=== PATIENT | male | born 1965 | race Two or more races ===

== ENCOUNTER 2017-01-04 19:27 | Emergency (ER) | payer OTHER ==
[~2017-01-04] VITALS: Ht 180.3 cm; Wt 119.7 kg
--- NOTE | 2017-01-04 19:45 | NUR ---
PT BIB SELF C/O L EYE TWITCHING X1 DAY WITH L FACIAL AND FINGER NUMBNESS/TINGLING TODAY. NO NEURO DEFICITS NOTED. SPEECH CLEAR. EQUAL CONTROL ELECTRICIAN STRENGTH. AMBULATORY WITH STEADY GAIT. RESP EVEN UNLABORED. SKIN WARM NONDIAPHORETIC. IN ER BED 09 ON MONITOR.
--- NOTE | 2017-01-04 19:52 | NUR ---
PT TRANSPORTED TO CT IN STABLE CONDITION
[2017-01-04] MEDS ORDERED: IV NS 0.9% 500 ML BAG IV ONE (20:00)
[2017-01-04 20:01] LABS: BASOPHILS # (AUTO) 0.1 /CMM (0.0-0.2); BASOPHILS % (AUTO) 0.8 % (0.0-2.0); EOSINOPHILS # (AUTO) 0.7 /CMM (0.0-0.7); EOSINOPHILS % (AUTO) 7.4 % (0.0-6.0); HEMATOCRIT 45 % (39-51); HEMOGLOBIN 15.1 g/dL (13.5-17.5); LYMPHOCYTES # (AUTO) 3.5 /CMM (0.8-4.8); MEAN CORPUSCULAR HEMOGLOBIN 30 PG (26.0-33.0); MEAN CORPUSCULAR HGB CONC 34 g/dl (31.0-36.0); MEAN CORPUSCULAR VOLUME 87 fL (80-96); MONOCYTES # (AUTO) 0.8 /CMM (0.1-1.30); MONOCYTES % (AUTO) 8.5 % (2.0-12.0); NEUTROPHILS # (AUTO) 4.1 /CMM (1.8-8.9); NEUTROPHILS % (AUTO) 45.3 % (43.0-81.0); PLATELET COUNT (AUTO) 279 /CMM (150-450); RDW COEFFICIENT OF VARIATION 12.8 (11.5-15.0); RED BLOOD CELL COUNT(AUTO) 5.13 MIL/uL (4.5-6.0); WHITE BLOOD COUNT (AUTO) 9.2 K/uL (4.3-11.0)
[2017-01-04] MEDS ORDERED: IV NS 0.9% 500 ML IV ONE (20:06)
[2017-01-04] MEDS ORDERED: IV SET PRIMARY 1 EA INFUS.SET MC ONE (20:06)
[2017-01-04 20:10] LABS: CALCIUM, SERUM 8.6 mg/dL (8.5-10.1); CARBON DIOXIDE 29 mmol/L (21-32); CHLORIDE 105 mmol/L (98-107); CREATININE 0.7 mg/dL (0.6-1.3); GFR 118 mL/min (>60); GLUCOSE 97 mg/dL (74-106); POTASSIUM 3.7 mmol/L (3.5-5.1); SODIUM SERUM 141 mmol/L (136-145); UREA NITROGEN, BLOOD 10 mg/dL (7-18)
[2017-01-04 20:14] LABS: INR 0.98 (0.87-1.13); PROTHROMBIN TIME 10.2 SECS (9.5-12.7)
[2017-01-04 20:16] LABS: ALANINE AMINOTRANSFERASE 45 U/L (12-78); ALBUMIN 3.9 g/dL (3.4-5.0); ALKALINE PHOSPHATASE 88 U/L (46-116); ASPARTATE AMINOTRANSFERASE 20 U/L (15-37); BILIRUBIN,DIRECT 0.1 mg/dL (0.0-0.2); BILIRUBIN,TOTAL 0.9 mg/dL (0.2-1.0); TOTAL PROTEIN, SERUM 7.4 g/dL (6.4-8.2)
[2017-01-04 20:18] LABS: TROPONIN I < 0.017 ng/mL (0.00-0.056)
[2017-01-04 21:12] VITALS: BP 117/69
--- NOTE | 2017-01-04 21:12 | NUR ---
Patient discharged to home in stable condition. Written and verbal after care instructions given. Patient verbalizes understanding of instruction. IV removed. Catheter intact and site benign. Pressure and 4x4 applied to site. No bleeding noted. AMBULATORY WITH STEADY GAIT.
== END 2017-01-04 21:12 | disposition home or self-care (01) ==
LOC: ER 19:29
DX: R42 Dizziness and giddiness (principal); E78.00 Pure hypercholesterolemia, unspecified
CPT/HCPCS: 36415; 70450-TC; 71010-TC; 80048-TC; 80076-TC; 84484-TC; 85025-TC; 85730-TC; A4606; J7040; Z7610

== ENCOUNTER 2022-08-10 13:04 | Emergency (ER) | payer BC, OTHER ==
[~2022-08-10] VITALS: Ht 177.8 cm; Wt 108.9 kg
[2022-08-10] MEDS ORDERED: KETOROLAC TROMETHAMINE INJ 60 MG/2 ML VIAL IM ONE ×2 (13:39→14:00)
[2022-08-10] MEDS ORDERED: CYCLOBENZAPRINE 10 MG TABLET ONE (13:39)
[2022-08-10] MEDS ORDERED: CYCL5TAB PO (13:40)
[2022-08-10] MEDS ORDERED: KETO10TA2 PO (13:40)
[2022-08-10] MEDS ORDERED: CYCLOBENZAPRINE 10 MG TABLET PO ONE (14:00)
[2022-08-10 14:25] VITALS: BP 134/77
== END 2022-08-10 14:29 | disposition home or self-care (01) ==
LOC: ER 13:11
DX: S39.012A Strain of muscle, fascia and tendon of lower back, initial encounter (principal); E78.00 Pure hypercholesterolemia, unspecified; F17.200 Nicotine dependence, unspecified, uncomplicated; Z79.899 Other long term (current) drug therapy; W01.0XXA Fall on same level from slipping, tripping and stumbling without subsequent striking against object, initial encounter; Y93.89 Activity, other specified; Y92.89 Other specified places as the place of occurrence of the external cause; Y99.8 Other external cause status
CPT/HCPCS: 99283; 96372; J1885

== ENCOUNTER 2022-09-01 17:07 | Emergency (ER) | payer BC ==
[~2022-09-01] VITALS: Ht 180.3 cm; Wt 104.3 kg
[~2022-09-01 17:07] MED LIST: CYCL5TAB PO; KETO10TA2 PO
[2022-09-01] MEDS ORDERED: IV NS 0.9% 1,000 ML BAG IV ONE (17:30)
[2022-09-01 18:12] LABS: BASOPHILS # (AUTO) 0.1 K/uL (0.0-0.2); BASOPHILS % (AUTO) 0.6 % (0.0-2.0); HEMATOCRIT 44 % (39-51); HEMOGLOBIN 15.3 g/dL (13.5-17.5); LYMPHOCYTES # (AUTO) 2.7 K/uL (0.8-4.8); LYMPHOCYTES % (AUTO) 30.3 % (20.0-44.0); MEAN CORPUSCULAR HGB CONC 35 g/dl (31.0-36.0); MEAN CORPUSCULAR VOLUME 88 fL (80-96); MONOCYTES # (AUTO) 0.9 K/uL (0.1-1.30); MONOCYTES % (AUTO) 10.2 % (2.0-12.0); NEUTROPHILS # (AUTO) 4.7 K/uL (1.8-8.9); NEUTROPHILS % (AUTO) 51.9 % (43.0-81.0); PLATELET COUNT (AUTO) 288 K/uL (150-450); RED BLOOD CELL COUNT(AUTO) 4.97 MIL/uL (4.5-6.0); WHITE BLOOD COUNT (AUTO) 9.1 K/uL (4.3-11.0)
[2022-09-01 18:57] LABS: ALBUMIN 3.6 g/dL (3.4-5.0); BILIRUBIN,TOTAL 0.6 mg/dL (0.2-1.0); CALCIUM, SERUM 8.1 mg/dL (8.5-10.1); CREATININE 0.8 mg/dL (0.6-1.3); POTASSIUM 3.9 mmol/L (3.5-5.1); TOTAL PROTEIN, SERUM 7.4 g/dL (6.4-8.2)
[2022-09-01 19:31] LABS: BILIRUBIN,URINE 1+ (NEGATIVE); COLOR,URINE ORANGE (YELLOW); LEUKOCYTE ESTERASE ,URINE NEGATIVE (NEGATIVE); NITRITE, URINE NEGATIVE (NEGATIVE); PROTEIN,URINE TRACE mg/dl (NEGATIVE); UGLUCOSE NEGATIVE (NEGATIVE)
[2022-09-01 20:02] LABS: RBC,URINE TOO NUMEROUS TO COUN /HPF (0-2); WBC,URINE 0-2 /HPF (0-3)
[2022-09-01 20:06] LABS: BACTERIA,URINE RARE /HPF (None Seen); SQUAMOUS EPITHELIAL CELL,UR 0-2 /HPF (None Seen)
[2022-09-01 20:30] VITALS: BP 131/80
== END 2022-09-01 20:30 | disposition home or self-care (01) ==
LOC: ER 17:15
DX: R31.9 Hematuria, unspecified (principal); E78.00 Pure hypercholesterolemia, unspecified; F17.200 Nicotine dependence, unspecified, uncomplicated; Z79.899 Other long term (current) drug therapy
CPT/HCPCS: 99284; 74176; 96360; 85025; 80048; 87086; 83690; 80076; 81001; 36415; J7030

== ENCOUNTER 2024-07-07 01:03 | Emergency (ER) | payer BC ==
[~2024-07-07] VITALS: Ht 180.3 cm; Wt 108.9 kg
[2024-07-07] MEDS ORDERED: IBUPROFEN 400 MG TABLET ONE (02:19)
[2024-07-07] MEDS: IBUPROFEN 400 MG TABLET PO ONE (02:24)
[2024-07-07 03:05] VITALS: BP 124/68; TEMP 98; O2SAT 98
== END 2024-07-07 03:05 | disposition home or self-care (01) ==
LOC: ER 01:05
DX: M54.9 Dorsalgia, unspecified (principal); E78.00 Pure hypercholesterolemia, unspecified; F17.200 Nicotine dependence, unspecified, uncomplicated; Z79.899 Other long term (current) drug therapy
CPT/HCPCS: 72070-TC

== ENCOUNTER 2025-06-05 11:53 | Emergency (ER) | payer BC ==
[~2025-06-05] VITALS: Ht 177.8 cm; Wt 114.8 kg
[2025-06-05] MEDS ORDERED: KETOROLAC TROMETHAMINE 15 MG/ML VIAL ONE (13:16)
[2025-06-05] MEDS: KETOROLAC TROMETHAMINE 15 MG/ML VIAL IM ONE (13:19)
[2025-06-05] MEDS ORDERED: LIDO1ADH62 TP (13:21)
[2025-06-05 14:23] VITALS: BP 135/79; TEMP 98; O2SAT 98
== END 2025-06-05 14:24 | disposition home or self-care (01) ==
LOC: ER 11:59
DX: M54.6 Pain in thoracic spine (principal); E78.00 Pure hypercholesterolemia, unspecified; F17.200 Nicotine dependence, unspecified, uncomplicated
CPT/HCPCS: 99283; 96372; J1885

== ENCOUNTER 2025-06-28 19:10 | Emergency (ER) | payer BC ==
[~2025-06-28] VITALS: Ht 177.8 cm; Wt 114.8 kg
[~2025-06-28 19:10] MED LIST changes: +LIDO1ADH62 TP
[2025-06-28 20:43] LABS: PLATELET COUNT (AUTO) 223 K/uL (150-450); RED BLOOD CELL COUNT(AUTO) 4.64 MIL/uL (4.5-6.0); RED CELL DISTRIBUTION WIDTH 13.2 % (11.5-15.0); WHITE BLOOD COUNT (AUTO) 8.9 K/uL (4.3-11.0)
[2025-06-28 20:52] LABS: CALCIUM, SERUM 8.9 mg/dL (8.5-10.1); CREATININE 0.7 mg/dL (0.6-1.3); SODIUM SERUM 137.0 mmol/L (136-145); UREA NITROGEN, BLOOD 11.0 mg/dL (7-18)
[2025-06-28 21:04] LABS: ASPARTATE AMINOTRANSFERASE 18.0 U/L (15-37); NT-PRO BNP 60.0 pg/mL (0-125); TOTAL PROTEIN, SERUM 7.4 g/dL (6.4-8.2)
[2025-06-28 22:14] LABS: APPEARANCE,URINE CLEAR (CLEAR); BLOOD, URINE NEGATIVE Ery/uL (NEGATIVE); LEUKOCYTE ESTERASE ,URINE NEGATIVE (NEGATIVE); NITRITE, URINE NEGATIVE (NEGATIVE); UGLUCOSE NEGATIVE (NEGATIVE)
[2025-06-28 22:41] LABS: ADD URINE CULTURE NO; SQUAMOUS EPITHELIAL CELL,UR Few /HPF (None Seen)
[2025-06-28] MEDS ORDERED: IBUP-1957 PO (22:52)
[2025-06-28] MEDS ORDERED: ACET325C7 PO (22:52)
[2025-06-28] MEDS ORDERED: LIDO700A30 TP (22:52)
[2025-06-28] MEDS ORDERED: METH-649 PO (22:52)
[2025-06-28 23:07] VITALS: BP 122/70; TEMP 98.6; O2SAT 99
== END 2025-06-28 23:08 | disposition home or self-care (01) ==
LOC: ER 19:12
DX: R07.9 Chest pain, unspecified (principal); M54.6 Pain in thoracic spine; R20.0 Anesthesia of skin; R06.02 Shortness of breath; E78.00 Pure hypercholesterolemia, unspecified; F17.200 Nicotine dependence, unspecified, uncomplicated
CPT/HCPCS: 36415; 70450-TC; 71045-TC; 72128-TC; 80053-TC; 81001; 83880; 84484-TC; 85025-TC